=== PATIENT | male | born 1980 | race Caucasian/White ===

== ENCOUNTER 2021-06-01 09:42 | Emergency (ER) | payer OTHER, SELFPAY ==
[2021-06-01 10:00] VITALS: BP 132/84; PULSE 90; RESP 18; TEMP 37; O2SAT 99
--- NOTE | 2021-06-01 10:21 | ED.URI ---
HPI - URI/Sore Throat General Chief Complaint: Upper Respiratory Infection Stated Complaint: cough Time Seen by Provider: 06/01/21 10:21 Source: patient Mode of arrival: ambulatory Limitations: no limitations History of Present Illness HPI Narrative: Robles Koch is a 41 yo male with no PMH who comes with congestion, cough with trying to sleep, scratchy throat from nasal drainage, is concerned about being well by Thanksgiving Related Data Allergies Allergy/AdvReac Type Severity Reaction Status Date / Time codeine Allergy Unknown Vomiting Verified 06/01/21 10:17 Review of Systems Review of Systems: CONSTITUTIONAL: Denies fever, chills, sweats. EYES: Denies visual changes, redness, discharge. ENT: Has rhinorrhea, has congestion, has sore throat, otalgia. CARDIOVASCULAR: Denies chest pain, palpitations, edema. RESPIRATORY: Denies dyspnea, wheezing, cough GASTROINTESTINAL: Denies abdominal pain, nausea, vomiting, diarrhea. GENITOURINARY: Denies dysuria, hematuria, abnormal discharge SKIN: Denies rash or itching. NEUROLOGIC: Denies numbness, or focal weakness. PSYCHIATRIC: Denies anxiety or depression. PMFSH Past Medical History Medical History BMI 28.0-28.9,adult Seasonal allergies Tobacco abuse Surgical History Surgical History History of nephrectomy, left Family History Family History Mother Diabetes mellitus Social History Social History Smoking status: Current every day smoker Tobacco type: cigarettes (1 ppd used to be 2 ppd) Alcohol intake: current Gender identity (if verbalized by the patient): Male Comments At time of signature, I agree with nursing past medical, surgical, social and family history. There is no relevant family history pertinent to the presenting complaint. Exam Narrative: GENERAL: This is a well-nourished, well-developed patient, in mild distress. HEAD: normocephalic, atraumatic. EYES: Sclera clear/white. Vision is grossly intact. EARS: External ears normal, auditory canals erythema and without drainage, TMs normal without perforation. Hearing grossly intact. NOSE: External nose normal with nasal discharge, nares with redness, no rhinorrhea. THROAT: Mucous membranes moist, posterior pharynx erythema NECK: Neck supple, CARDIOVASCULAR: Regular rate and rhythm without murmurs, gallops, or rubs. RESPIRATORY: Clear to auscultation. Breath sounds equal bilaterally. No wheezes, rales, or rhonchi. GASTROINTESTINAL: Abdomen soft, non-tender, SKIN: warm, intact with no suspicious lesions or rash, good texture and turgor. NEURO: awake, alert, and oriented to person, place and time. There were no obvious focal neurologic abnormalities. Steady gait EXTREMITIES: Normal range of motion. BACK: Nontender without deformity Course Course Emergency Course: Patient here with upper respiratory symptoms including sinus congestion dry cough when trying to sleep ear congestion Started on prednisone 40 mg daily x5 days, [place] Vital Signs Vital signs: Vital Signs Temperature 98.6 F 06/01/21 10:00 Pulse Rate 90 06/01/21 10:00 Respiratory Rate 18 06/01/21 10:00 Blood Pressure 132/84 06/01/21 10:00 Pulse Oximetry 99 06/01/21 10:00 Temperature 98.6 F 06/01/21 10:00 Pulse Rate 90 06/01/21 10:00 Respiratory Rate 18 06/01/21 10:00 Blood Pressure 132/84 06/01/21 10:00 Pulse Oximetry 99 06/01/21 10:00 MDM - URI/Sore Throat Differential Diagnosis Differential diagnosis: Likely upper respiratory infection, sinusitis, viral infection, influenza, pharyngitis and other Critical Care Time Critical Care Time Critical Care Time: No Discharge Plan Discharge Clinical Impression: Upper respiratory infection Patient Disposition:
== END 2021-06-01 10:35 | disposition home or self-care (01) ==
PROVIDERS: Emergency Provider Nurse Practitioner; PCP Family Medicine
DX: J06.9 Acute upper respiratory infection, unspecified (principal); F17.210 Nicotine dependence, cigarettes, uncomplicated
CPT/HCPCS: 99213; G0463

== ENCOUNTER 2021-08-14 14:06 | Emergency (ER) | payer OTHER, SELFPAY ==
--- NOTE | ~2021-08-14 | XR_ITS ---
EXAMINATION: XR lumbar spine min 4V DATE: 08/14/2021 15:04 INDICATION: Nontraumatic central low back pain TECHNIQUE: Anteroposterior, lateral, and bilateral oblique views of the lumbar spine, and cone-down l ateral view of the lumbosacral junction were obtained. COMPARISON: None. FINDINGS: 5 degree dextrocurvature between T11 and L3. 4 mm retrolisthesis L5 on S1. Vertebral body heights are normal. Disc heights are normal. Moderate osteoarthritis on the right at L5-S1 and minimal to mild a t the remaining levels throughout the lumbar and lower thoracic spine. No pars interarticularis defec ts. Mild bilateral sacroiliac osteoarthritis. Sacral arches are intact. IMPRESSION: 1. 5 degrees thoracolumbar dextrocurvature. 2. Multilevel lumbar and lower thoracic facet osteoarthritis, moderate on the right at L5-S1 and othe rwise minimal to mild. Reviewed, dictated and finalized at location A. [facility] IMPRESSION: 1. 5 degrees thoracolumbar dextrocurvature. 2. Multilevel lumbar and lower thoracic facet osteoarthritis, moderate on the r ight at L5-S1 and otherwise minimal to mild.
[2021-08-14 14:09] VITALS: BP 135/88; PULSE 98; RESP 18; TEMP 36.9; O2SAT 100
--- NOTE | 2021-08-14 14:51 | ED.GENADULT ---
HPI - General Adult General Chief complaint: Back Pain/Injury Stated complaint: back pain Time Seen by Provider: 08/14/21 14:12 Source: patient Mode of arrival: ambulatory Limitations: no limitations History of Present Illness HPI narrative: Patient is a 41-year-old male with chief complaint of pain to bilateral sides of his low back that have waxed and waned in intensity since yesterday. 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 He denies feeling sudden popping or snapping or pain at that time reports that he has had some intermittent sharp spasming pain to the low back since. Patient denies loss of bowel or bladder function. Patient reports symptoms worsen with flexion and rotation. Patient reports that he was brought to the emergency department for evaluation and treatment. 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 He reports that he does take naproxen at home for arthritis. Related Data Allergies Allergy/AdvReac Type Severity Reaction Status Date / Time codeine Allergy Unknown Vomiting Verified 08/14/21 14:15 Review of Systems Review of Systems: CONSTITUTIONAL: Denies fever, chills, or sweats. EYES: Denies visual changes, redness, or discharge. ENT: Denies rhinorrhea, congestion, sore throat, or otalgia. CARDIOVASCULAR: Denies chest pain, palpitations, or edema. RESPIRATORY: Denies cough or dyspnea. GASTROINTESTINAL: Denies abdominal pain, nausea, vomiting, or diarrhea. GENITOURINARY: Denies dysuria or hematuria. SKIN: Denies rash or itching. MUSCULOSKELETAL:Reports back pain, Denies joint pain, or myalgia. NEUROLOGIC: Denies headache, numbness, dizziness, or weakness. PSYCHIATRIC: Denies anxiety or depression. [facility] Past Medical History Medical History BMI 28.0-28.9,adult Seasonal allergies Tobacco abuse Surgical History Surgical History History of nephrectomy, left Family History Family History Mother Diabetes mellitus Social History Social History Smoking status: Current every day smoker Tobacco type: cigarettes (1 ppd used to be 2 ppd) Alcohol intake: current Gender identity (if verbalized by the patient): Male Exam Narrative: GENERAL: Well-appearing, well-nourished. HEAD: Normocephalic, atraumatic. EYES: PERRLA and EOMI. CHEST: Clear to auscultation. No respiratory distress. No wheezes rales or rhonchi HEART: Regular rate and rhythm. Normal peripheral pulses. BACK: No vertebral point tenderness. ABDOMEN: Soft, nontender, nondistended, normal active bowel sounds. No bruises noted. EXTREMITIES: No acute changes in ROM. No edema. SKIN: Warm, dry, no rash. NEURO: No focal deficits. Alert and oriented x3. PSYCH: Normal mood and affect. Course Vital Signs Vital signs: Vital Signs Temperature 98.4 F 08/14/21 14:09 Pulse Rate 98 08/14/21 14:09 Respiratory Rate 18 08/14/21 14:09 Blood Pressure 135/88 08/14/21 14:09 Pulse Oximetry 100 08/14/21 14:09 Temperature 98.4 F 08/14/21 14:09 Pulse Rate 98 08/14/21 14:09 Respiratory Rate 18 08/14/21 14:09 Blood Pressure 135/88 08/14/21 14:09 Pulse Oximetry 100 08/14/21 14:09 Medical Decision Making [facility] Narrative Medical decision making narrative: patients pain is positional in nature and localized to back without signs of cord compression or cauda equina based on neurological exam, skeletal exam and history. No fever or other significant factors to suggest osteomyelitis or spinal epidural abscess. No symptoms or signs to suggest pain is referred from abdominal or / cardiopulmonary sources. No pulsatile masses noted on exam. Patient ambulates with steady gait and is stable for outpatient management given case findings.Patient
[2021-08-14] MEDS: ORPHENADRINE CITRATE 100 MG TABLET.ER PO (15:04)
== END 2021-08-14 16:15 | disposition home or self-care (01) ==
PROVIDERS: Emergency Provider Emergency Medicine; PCP Family Medicine
DX: S39.012A Strain of muscle, fascia and tendon of lower back, initial encounter (principal); F17.210 Nicotine dependence, cigarettes, uncomplicated; X50.0XXA Overexertion from strenuous movement or load, initial encounter
CPT/HCPCS: 72110; 99283; A9270

== ENCOUNTER 2021-11-07 19:47 | Emergency (ER) | payer OTHER, SELFPAY ==
[2021-11-07 19:57] VITALS: BP 137/81; PULSE 89; RESP 16; TEMP 37.2; O2SAT 99
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
== END 2021-11-07 20:22 | disposition short-term general hospital (02) ==
PROVIDERS: Emergency Provider Nurse Practitioner Family
DX: Z04.1 Encounter for examination and observation following transport accident (principal); R05.9 Cough, unspecified; R55 Syncope and collapse; F17.210 Nicotine dependence, cigarettes, uncomplicated
CPT/HCPCS: 99212; G0463

== ENCOUNTER 2021-11-07 20:38 | Emergency (ER) | payer OTHER, SELFPAY ==
--- NOTE | ~2021-11-07 | CT_ITS ---
EXAMINATION: CT brain wo con INDICATION: Transient alteration of awareness COMPARISON: None TECHNIQUE: Standard unenhanced head CT. The dose-length product (DLP) was 605.33 mGy-cm. The mA was a djusted according to patient size. Iterative reconstruction technique was employed. FINDINGS: There is no intracranial hemorrhage, acute infarction, or abnormal mass lesion. The ventric les are normal. There is no abnormal mass effect or midline shift. The arechiga-white matter differentiat ion is normal. The basal cisterns are patent. The orbits are normal. The paranasal sinuses, mastoids and calvarium are normal. IMPRESSION: 1. No acute intracranial abnormality. Reviewed, dictated and finalized at location F.
[2021-11-07 20:46] VITALS: BP 163/93; PULSE 78; RESP 18; TEMP 37.1; O2SAT 99
[2021-11-07 20:51] VITALS: PULSE 78; O2SAT 98
--- NOTE | 2021-11-07 20:53 | ECG_ITS ---
Measurements Intervals [place] Rate: 79 P: 39 [place]: 182 QRS: -24 QRSD: 117 T: 31 QT: 358 QTc: 412 Interpretive Statements SINUS RHYTHM BORDERLINE LEFT AXIS DEVIATION [QRS AXIS < -20] INCOMPLETE RIGHT BUNDLE BRANCH BLOCK [90+ ms QRS DURATION, TERMINAL R IN V1/V2, 40+ ms S IN I/aVL/V4/V5/V6] NO PREVIOUS ECG AVAILABLE FOR COMPARISON Electronically Signed On 11-07-2021 20:58:53 CDT by Marissa Brooks M.D.
[2021-11-07 21:11] LABS: Basophils Absolute Auto 0.1 K/mm3 (0.0-0.1); Basophils Percent Auto 0.6 % (0.2-1.2); Eosinophils Absolute Auto 0.2 K/mm3 (0-0.3); Eosinophils Percent Auto 2.7 % (0-4.4); Hematocrit 41.8 % (42.0-52.0); Hemoglobin 13.9 g/dL (14.0-18.0); Immature Granulocyte Absolute 0.02 K/mm3 (0.00-0.031); Immature Granulocyte Percent A 0.2 % (0-0.5); Lymphocytes Absolute Auto 2.74 K/mm3 (0.9-3.2); Lymphocytes Percent Auto 33.3 % (18.3-44.2); Mean Corpuscular HGB Conc 33.3 g/dl (32-36); Mean Corpuscular Hemoglobin 28.7 pg (26-34); Mean Corpuscular Volume 86.2 fl (80-100); Mean Platelet Volume 9.6 fl (7.4-10.4); Monocytes Absolute Auto 0.6 K/mm3 (0.1-0.6); Monocytes Percent Auto 7.5 % (2.6-8.5); Neutrophils Absolute Auto 4.6 K/mm3 (1.3-6.7); Neutrophils Percent Auto 55.7 % (45.5-73.1); Platelet Count Result 345 k/mm3 (150-375); Red Blood Count 4.85 M/mm3 (4.6-6.20); Red Cell Distribution Width 12.3 % (11.5-14.5); White Blood Count 8.2 K/mm3 (4.5-10.0)
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
[2021-11-07 21:24] LABS: Alanine Aminotransferase 40 U/L (4-50); Albumin Level 4.5 g/dL (3.5-5.1); Alkaline Phosphatase 45 U/L (38-126); Anion Gap 7 mmol/L (8-16); Aspartate Amino Transferase 34 U/L (17-59); Bilirubin,Total 0.5 mg/dL (0.2-1.3); Blood Urea Nitrogen 26 mg/dL (9-20); Calcium 9.1 mg/dL (8.4-10.2); Carbon Dioxide 29 mmol/L (22-30); Chloride 103 mmol/L (98-107); Estimated Glomerular Filt Rate > 60; Glucose 144 mg/dL (65-110); Potassium 3.8 mmol/L (3.4-5.0); Sodium 139 mmol/L (137-145)
[2021-11-07 21:33] VITALS: BP 126/95; PULSE 85; RESP 18; O2SAT 96
[2021-11-07 22:28] VITALS: BP 122/79; PULSE 83; RESP 18; O2SAT 95
== END 2021-11-07 22:30 | disposition home or self-care (01) ==
PROVIDERS: Emergency Provider Emergency Medicine; PCP Family Medicine
DX: R55 Syncope and collapse (principal); S09.90XA Unspecified injury of head, initial encounter; Z90.5 Acquired absence of kidney; F17.210 Nicotine dependence, cigarettes, uncomplicated; V44.5XXA Car driver injured in collision with heavy transport vehicle or bus in traffic accident, initial encounter; I45.10 Unspecified right bundle-branch block
CPT/HCPCS: 36415; 70450; 80053; 85025; 93005; 99284

== ENCOUNTER 2024-04-01 09:18 | Emergency (ER) | payer OTHER, SELFPAY ==
[2024-04-01 09:35] VITALS: BP 139/101; PULSE 80; RESP 16; TEMP 37.1; O2SAT 97
--- NOTE | 2024-04-01 09:48 | ED.URI ---
HPI - URI/Sore Throat General Chief Complaint: Upper Respiratory Infection Stated Complaint: Sinus/Cough Time Seen by Provider: 04/01/24 09:48 Source: patient Mode of arrival: ambulatory Limitations: no limitations History of Present Illness HPI Narrative: 44-year-old male presents with complaint of cough, nasal congestion, sinus pressure, postnasal drainage, fatigue for 1 week. Afebrile. Taking [id number] DayQuil NyQuil to treat symptoms. Patient reports no improvement to symptoms. Denies nausea vomiting diarrhea. All systems reviewed and negative except as noted above. Related Data Allergies Allergy/AdvReac Type Severity Reaction Status Date / Time codeine Allergy Unknown Vomiting Verified 04/01/24 09:24 Review of Systems Review of Systems: CONSTITUTIONAL: Denies fever, chills, or sweats. EYES: Denies visual changes, redness, or discharge. ENT: Reports rhinorrhea, congestion, sinus pressure. Denies sore throat, or otalgia. CARDIOVASCULAR: Denies chest pain, palpitations, or edema. RESPIRATORY: reports cough. Denies dyspnea. GASTROINTESTINAL: Denies abdominal pain, nausea, vomiting, or diarrhea. GENITOURINARY: Denies dysuria or hematuria. SKIN: Denies rash or itching. MUSCULOSKELETAL: Denies back pain, joint pain, or myalgia. NEUROLOGIC: Denies headache, numbness, or weakness. PSYCHIATRIC: Denies anxiety or depression. All other systems reviewed are negative, except as documented in HPI. [facility] Past Medical History Medical History Acute sinusitis Adult BMI 26.0-26.9 kg/sq m BMI 28.0-28.9,adult Dizziness Dysfunction of both eustachian tubes Myalgia Screening for diabetes mellitus Screening for lipid disorders Screening for thyroid disorder Seasonal allergies Tobacco abuse Surgical History Surgical History History of nephrectomy, left Family History Family History (Updated 07/21/22 @ 07:15 by RDUOLPH [place]) Mother Diabetes mellitus Father No problems noted. Sibling No problems noted. Social History Social History Smoking packs per day: 1 Smoking cigarettes per day: 20.0 Years smoked: 22 Smoking pack-years: 22.00 Smoking status: Current every day smoker Tobacco type: e-cigarettes/vaping Additional smoking assessment comments: Switched to vaping September 2021, vasovagal symptoms worsened after switch Alcohol intake: current Drinks per week: 5 Substance use: never Substance use type: does not use Gender identity (if verbalized by the patient): Male Comments At time of signature, agree with nursing past medical, surgical, social and family history. There is no relevant family history pertinent to the presenting complaint. Exam Narrative: GENERAL: This is a well-nourished, well-developed patient, in no apparent distress. HEAD: normocephalic, atraumatic. EYES: PERRL. Sclera clear/white. Vision is grossly intact. EARS: External ears normal, auditory canals clear and without drainage, TMs normal without perforation. Hearing grossly intact. NOSE: External nose normal with purulent nasal drainage, erythema and swelling to bilateral nares. bilateral frontal and maxillary sinus tenderness on palpation. THROAT: Mucous membranes moist, erythema postnasal drainage NECK: Neck supple, non-tender without lymphadenopathy, masses or thyromegaly. CARDIOVASCULAR: Regular rate and rhythm without murmurs, gallops, or rubs. RESPIRATORY: Clear to auscultation. Breath sounds equal bilaterally. No wheezes, rales, or rhonchi. SKIN: warm, Dry, intact with no suspicious lesions or rash, good texture and turgor. NEURO: awake, alert, and oriented to person, place and time. There were no obvious focal neurologic abnormalities. EXTREMITIES: No joint tenderness, effusion, or edema noted. Course Cou
[2024-04-01 10:11] LABS: EDINFLUASCREEN Negative (Negative); EDINFLUBSCREEN Negative (Negative)
== END 2024-04-01 10:15 | disposition home or self-care (01) ==
PROVIDERS: Emergency Provider Nurse Practitioner Family; PCP Family Medicine
DX: J01.90 Acute sinusitis, unspecified (principal); F17.290 Nicotine dependence, other tobacco product, uncomplicated
CPT/HCPCS: 87804; 99213; G0463